=== PATIENT | female | born 1985 | race Caucasian/White ===

== ENCOUNTER 2019-06-23 08:17 | Outpatient (CLI) | payer OTHER ==
[2019-06-23] MEDS ORDERED: Iopamidol 370 76% 100 ML VIAL ONE (09:00)
--- NOTE | 2019-06-23 11:07 | CT ---
CT OF THE ABDOMEN WITH IV CONTRAST INDICATION: Continuous epigastric abdominal pain; history of recent endoscopy and February 2019 which marcello ntified no abnormality. COMPARISON: Gallbladder ultrasound dated July 25, 2010 FINDINGS: ABDOMEN: Lung bases: Clear Liver: No focal lesion. Gallbladder: Surgically absent Pancreas: Normal. Adrenal glands: Normal. Spleen: Small splenule is seen anterior and superior to the main spleen parenchyma. Kidneys and ureters: Normal. No hydronephrosis. Vasculature: Normal. Lymph nodes:No lymphadenopathy. Free fluid in abdomen:No free fluid is evident. Bowel: Visualized large and small bowel demonstrate a moderate amount retained stool within colon. Sm all bowel is of normal caliber. Osseous structures: No acute osseous abnormality. No destructive osteolytic or osteoblastic lesion i s identified. Soft tissues:Normal. IMPRESSION: 1. No acute abnormality.
== END 2019-06-23 08:18 | disposition home or self-care (01) ==
LOC: SCSCT 08:17
PROVIDERS: ATTEND Internal Medicine Gastroenterology
DX: R10.13 Epigastric pain (principal); K21.9 Gastro-esophageal reflux disease without esophagitis
CPT/HCPCS: 74160; Q9967

== ENCOUNTER 2020-01-19 07:51 | Outpatient (CLI) | payer OTHER ==
--- NOTE | 2020-01-19 10:57 | MMO ---
Bilateral MAMMO Bilat Diag [facility]. CLINICAL HISTORY: Patient is 34 years old and is seen for diagnostic exam,palpable abnormality, lump or thickening and pain in the right breast. The patient has the following family history of breast cancer: 2 great aunts. The patient has no personal history of cancer. VIEWS: The views performed were: bilateral craniocaudal with tomosynthesis; bilateral mediolateral oblique with tomosynthesis; bilateral mediolateral with tomosynthesis; and bilateral exaggerated craniocaudal. FILMS COMPARED: The present examination has been compared to a prior imaging study performed at [facility] on 01/19/2020. This study has been interpreted with the assistance of computer-aided detection. MAMMOGRAM FINDINGS: The breasts are heterogeneously dense, which could obscure a lesion on mammography. No mammographic or sonograhic abnormality is seen at the site of palpable concern in the right breast. There are no suspicious masses, suspicious calcifications, or new areas of architectural distortion. IMPRESSION: THERE IS NO MAMMOGRAPHIC EVIDENCE OF MALIGNANCY. A ROUTINE FOLLOW-UP MAMMOGRAM AT AGE 41 IS RECOMMENDED. THE RESULTS OF THIS EXAM WERE SENT TO THE PATIENT. ACR BI-RADS Category 2 - Benign finding MAMMOGRAPHY NOTE: 1. A negative mammogram report should not delay a biopsy if a dominant of clinically suspicious mass is present. 2. Approximately 10% to 15% of breast cancers are not detected by mammography. 3. Adenosis and dense breasts may obscure an underlying neoplasm. Reported by: GENARO LOPEZ MD Electonically Signed: [id number]
--- NOTE | 2020-01-19 12:18 | ULT ---
RIGHT BREAST ULTRASOUND: HISTORY: Palpable abnormality right breast 10 o'clock position 4 cm from the nipple. FINDINGS: Real-time imaging of the area of concern failed to show any cystic or solid lesion. IMPRESSION: Unremarkable right breast ultrasound. POS: [facility]
== END 2020-01-19 07:52 | disposition home or self-care (01) ==
LOC: BICMAMMO 07:51
PROVIDERS: ATTEND Nurse Practitioner Family
DX: N63.10 Unspecified lump in the right breast, unspecified quadrant (principal)
CPT/HCPCS: 77066; G0279

== ENCOUNTER 2022-10-12 11:57 | Outpatient (CLI) | payer BC | END 2022-10-12 11:58 | disposition home or self-care (01) | LOC: SCSRAD 11:57 | PROVIDERS: ATTEND Nurse Practitioner Family | DX: M25.522 Pain in left elbow (principal) ==